=== PATIENT | female | born 1980 | race Caucasian/White ===

== ENCOUNTER 2016-08-29 10:58 | Emergency (ER) | payer OTHER ==
[~2016-08-29] VITALS: Ht 152.4 cm; Wt 79.5 kg
[2016-08-29] MEDS ORDERED: methylPREDNISolone SOD SUCC 125 MG/2 ML ONE (11:13)
[2016-08-29] MEDS ORDERED: EPINEPHRINE 1 MG/ML, 1ML ONE (11:13)
[2016-08-29] MEDS ORDERED: DIPHENHYDRAMINE 50 MG/ML, 1ML ONE (11:20)
[2016-08-29] MEDS ORDERED: LORazepam 2 MG/ML, 1ML ONE (11:20)
[2016-08-29] MEDS ORDERED: FAMOTIDINE 20 MG/2 ML ONE (11:20)
[2016-08-29] MEDS ORDERED: ALBUTEROL SULFATE 2.5 MG/3 ML ONE (11:25)
[2016-08-29] MEDS ORDERED: LISI-167 PO (11:27)
[2016-08-29] MEDS ORDERED: TRAM50TA2 PO (11:27)
[2016-08-29] MEDS ORDERED: EPINEPHRINE 1 MG/ML, 1ML IM ONE (11:30)
[2016-08-29] MEDS ORDERED: DIPHENHYDRAMINE 50 MG/ML, 1ML IVPush ONE (11:30)
[2016-08-29] MEDS ORDERED: ALBUTEROL SULFATE 2.5 MG/3 ML NPPB ONE (11:30)
[2016-08-29] MEDS ORDERED: SODIUM CHLORIDE FLUSH 10ML SYR IVF ONE (11:30)
[2016-08-29] MEDS ORDERED: FAMOTIDINE 20 MG/2 ML IVPush ONE (11:30)
[2016-08-29] MEDS ORDERED: LORazepam 2 MG/ML, 1ML IVPush ONE (11:30)
[2016-08-29] MEDS ORDERED: ONDANSETRON 2MG/ML, 2ML IVPush ONE (11:30)
[2016-08-29] MEDS ORDERED: methylPREDNISolone SOD SUCC 125 MG/2 ML IVPush ONE (11:30)
[2016-08-29] MEDS ORDERED: SODIUM CHLORIDE 0.9% 1,000ML IVBOLUS ONE (11:30)
[2016-08-29] MEDS ORDERED: ONDANSETRON 2MG/ML, 2ML ONE (11:39)
[2016-08-29] MEDS ORDERED: PLEASE ENTER WEIGHT MC SCH (12:00)
[2016-08-29 12:32] VITALS: BP 116/75
== END 2016-08-29 14:11 | disposition home or self-care (01) ==
LOC: ED 11:43
DX: T78.40XA Allergy, unspecified, initial encounter (principal); T78.3XXA Angioneurotic edema, initial encounter; J98.01 Acute bronchospasm; R10.9 Unspecified abdominal pain
CPT/HCPCS: 94640; 96372; 96374; 96375; 99284; J0171; J1200; J2060; J2405; J2930; J7030; J7613; S0028

== ENCOUNTER 2020-07-02 15:50 | Emergency (ER) | payer MEDICAID, OTHER ==
[~2020-07-02] VITALS: Ht 182.9 cm; Wt 96.3 kg
[~2020-07-02 15:50] MED LIST: LISI-167 PO; TRAM50TA2 PO
[2020-07-02 16:44] LABS: BASOPHILS % (AUTO) 1 % (0-1); EOSINOPHILS % (AUTO) 9 % (1-7); LYMPHOCYTES % (AUTO) 35 % (22-44); MEAN CORPUSCULAR HEMOGLOBIN 33.6 pg (27.0-34.8); MEAN CORPUSCULAR HGB CONC 33.6 g/dL (32.4-35.8); MEAN PLATELET VOLUME 7.9 fL (7.4-10.4); MONOCYTES % (AUTO) 12 % (2-9); NEUTROPHILS % (AUTO) 44 % (42-75); PLATELET COUNT 172 x10^3/uL (130-400); RED BLOOD COUNT 4.25 x10^6/uL (3.82-5.3)
[2020-07-02 16:47] LABS: MD NO
--- NOTE | 2020-07-02 16:50 | NUR ---
cc of SI thoughts with no plan and hearing and seeing things that are not there. 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 pt states she does not have hx of hearing voices and seeing things that aren't there. pt states the voices are not telling her to hurt herself or others. pt has hx of cutting wrists in january 2020. pt arrived to hospital with sister, sister to take pts jewlery, medications, and backpack home. pt has clothing in locker, pt in gown, sitter at doorway and SI precautions in place.
[2020-07-02 16:54] LABS: ALBUMIN 4.3 g/dL (3.4-5.0); ANION GAP 4 mmol/L (5-15); CALCIUM 9.1 mg/dL (8.5-10.1); CHLORIDE 106 mmol/L (98-107); CREATININE 0.71 mg/dL (0.55-1.02)
[2020-07-02] MEDS ORDERED: LORazepam 1MG TABLET PO ONE (17:00)
--- NOTE | 2020-07-02 17:01 | NUR ---
nick haq collected and walked to lab
[2020-07-02] MEDS ORDERED: ARIPIPRAZOLE 5 MG TABLET ONE (17:09)
[2020-07-02] MEDS ORDERED: LORazepam 1MG TABLET ONE (17:09)
[2020-07-02 17:14] LABS: AMPHETAMINE SCREEN, URINE Negative (Negative); BARBITURATE SCREEN, URINE Negative (Negative); BENZODIAZEPINE SCREEN, URINE Negative (Negative); CANNABINOID SCREEN, URINE Positive (Negative); COCAINE SCREEN, URINE Negative (Negative); METHADONE SCREEN, URINE Negative (Negative); OPIATE SCREEN, URINE Negative (Negative)
--- NOTE | 2020-07-02 18:25 | NUR ---
PT UP TO RESTROOM WITH STEADY INDEPENDENT GAIT. SI PRECAUTIONS IN PLACE AND SITTER AT DOORWAY.
--- NOTE | 2020-07-02 18:44 | NUR ---
ATTEMPT #1 FOR REPORT, [facility] REQUESTED RN TO CALL BACK AFTER SHIFT CHANGE
--- NOTE | 2020-07-02 18:45 | NUR ---
REPORT GIVEN TO JEFFRY ALVARADO.
[2020-07-02 19:08] VITALS: BP 94/58
--- NOTE | 2020-07-02 19:10 | NUR ---
report given to cristino huerta
[2020-07-03] MEDS ORDERED: FENO48TA10 PO (01:20)
[2020-07-03] MEDS ORDERED: LAMO25TA9 PO (01:36)
[2020-07-03] MEDS ORDERED: LEVE500T8 PO (01:36)
[2020-07-03] MEDS ORDERED: HYDR50CA2 PO (01:36)
[2020-07-03] MEDS ORDERED: ARIPIPRAZOLE 10 MG TABLET PO SCH (09:00)
[2020-07-03] MEDS ORDERED: ARIPIPRAZOLE 5 MG TABLET PO SCH (09:00)
== END 2020-07-02 19:25 ==
LOC: ED 19:18
DX: F32.9 Major depressive disorder, single episode, unspecified (principal); Z20.822 Contact with and (suspected) exposure to COVID-19; R44.0 Auditory hallucinations; R45.851 Suicidal ideations; I10 Essential (primary) hypertension; J45.909 Unspecified asthma, uncomplicated; F17.200 Nicotine dependence, unspecified, uncomplicated; Z90.710 Acquired absence of both cervix and uterus
CPT/HCPCS: 36415; 80048; 80307; 82040; 84443; 85025; 87426; 99285

== ENCOUNTER 2020-07-02 17:35 | Inpatient (IN) | payer MEDICAID, OTHER ==
[~2020-07-02] VITALS: Ht 182.9 cm; Wt 99.6 kg
[2020-07-02] MEDS ORDERED: POLYETHYLENE GLYCOL 17 GM PACKET PO PRN (18:00)
[2020-07-02] MEDS ORDERED: DOCUSATE 100 MG CAPSULE PO PRN (18:00)
[2020-07-02] MEDS ORDERED: ONDANSETRON ODT 4 MG PO PRN (18:00)
[2020-07-02] MEDS ORDERED: BISACODYL 10 MG SUPP PR PRN (18:00)
[2020-07-02 19:50] VITALS: BP 112/83
[2020-07-02] MEDS ORDERED: PLEASE ENTER HEIGHT AND WEIGHT MC SCH (20:00)
[2020-07-02] MEDS ORDERED: LAMOTRIGINE 25 MG TABLET PO SCH (21:00)
[2020-07-02 21:26] VITALS: BP 112/83
[2020-07-02] MEDS: LEVETIRACETAM 500 MG TABLET PO SCH (22:09)
[2020-07-02] MEDS: ACETAMINOPHEN 325 MG TABLET PO PRN (22:09)
[2020-07-03 01:11] LABS: MICROSCOPIC NOT IND
[2020-07-03] MEDS ORDERED: FENO48TA10 PO (01:20)
[2020-07-03] MEDS ORDERED: LEVE500T8 PO (01:36)
[2020-07-03] MEDS ORDERED: HYDR50CA2 PO (01:36)
[2020-07-03] MEDS ORDERED: LAMO25TA9 PO (01:36)
[2020-07-03 07:00] VITALS: BP 113/81
[2020-07-03 07:02] LABS: FREE T4 (FREE THYROXINE) 0.94 ng/dL (0.76-1.46); LDL/HDL RATIO 1.5 (0.5-3.0)
[2020-07-03] MEDS: ACETAMINOPHEN 325 MG TABLET PO PRN ×3 (07:55→18:09)
[2020-07-03] MEDS: LAMOTRIGINE 25 MG TABLET PO SCH ×2 (08:01→21:07)
[2020-07-03] MEDS: LEVETIRACETAM 500 MG TABLET PO SCH ×2 (08:01→21:07)
[2020-07-03] MEDS: NICOTINE 14MG/24 HR PATCH.TD24 TD SCH (08:03)
[2020-07-03] MEDS: DULOXETINE 30 MG CAPSULE.DR PO SCH (16:30)
[2020-07-03 18:05] VITALS: BP 110/76
[2020-07-03] MEDS: QUETIAPINE 25MG TABLET PO SCH (21:07)
[2020-07-04] MEDS: ACETAMINOPHEN 325 MG TABLET PO PRN ×2 (04:36→20:58)
[2020-07-04 07:00] VITALS: BP 115/81
[2020-07-04] MEDS: LEVETIRACETAM 500 MG TABLET PO SCH ×2 (08:21→20:53)
[2020-07-04] MEDS: DULOXETINE 30 MG CAPSULE.DR PO SCH (08:21)
[2020-07-04] MEDS: LAMOTRIGINE 25 MG TABLET PO SCH ×2 (08:22→20:54)
[2020-07-04] MEDS: NICOTINE 14MG/24 HR PATCH.TD24 TD SCH (08:52)
[2020-07-04] MEDS ORDERED: MELOXICAM 15 MG TABLET PO SCH (09:00)
[2020-07-04 19:44] VITALS: BP 116/75
[2020-07-04] MEDS: QUETIAPINE 25MG TABLET PO SCH (20:53)
[2020-07-05 07:48] VITALS: BP 121/83
[2020-07-05] MEDS: LEVETIRACETAM 500 MG TABLET PO SCH ×2 (08:12→20:53)
[2020-07-05] MEDS: DULOXETINE 30 MG CAPSULE.DR PO SCH (08:12)
[2020-07-05] MEDS: LAMOTRIGINE 25 MG TABLET PO SCH ×2 (08:13→20:54)
[2020-07-05] MEDS: NICOTINE 14MG/24 HR PATCH.TD24 TD SCH (09:00)
[2020-07-05] MEDS: ACETAMINOPHEN 325 MG TABLET PO PRN ×2 (09:26→15:12)
[2020-07-05 19:25] VITALS: BP 114/78
[2020-07-05] MEDS: QUETIAPINE 25MG TABLET PO SCH (20:54)
[2020-07-05] MEDS: MELOXICAM 15 MG TABLET PO SCH (20:54)
[2020-07-06] MEDS: ACETAMINOPHEN 325 MG TABLET PO PRN ×4 (04:19→20:05)
[2020-07-06 07:48] VITALS: BP 115/81
[2020-07-06] MEDS: LEVETIRACETAM 500 MG TABLET PO SCH ×2 (08:07→20:05)
[2020-07-06] MEDS: LAMOTRIGINE 25 MG TABLET PO SCH ×2 (08:07→20:05)
[2020-07-06] MEDS: NICOTINE 14MG/24 HR PATCH.TD24 TD SCH (08:08)
[2020-07-06] MEDS: DULOXETINE 30 MG CAPSULE.DR PO SCH (08:08)
[2020-07-06] MEDS ORDERED: MELO15TA24 PO (13:53)
[2020-07-06] MEDS ORDERED: QUET25TA7 PO (13:53)
[2020-07-06] MEDS ORDERED: DULO30CA2 PO (13:53)
[2020-07-06] MEDS ORDERED: NICO-486 TD (13:53)
[2020-07-06 18:11] VITALS: BP 104/71
[2020-07-06] MEDS: QUETIAPINE 25MG TABLET PO SCH (20:05)
[2020-07-06] MEDS: MELOXICAM 15 MG TABLET PO SCH (20:05)
[2020-07-07] MEDS: ACETAMINOPHEN 325 MG TABLET PO PRN ×2 (00:55→09:23)
[2020-07-07 07:53] VITALS: BP 121/86
[2020-07-07] MEDS ORDERED: LAMOTRIGINE 25 MG TABLET PO SCH (09:00)
[2020-07-07] MEDS: DULOXETINE 30 MG CAPSULE.DR PO SCH (09:14)
[2020-07-07] MEDS: NICOTINE 14MG/24 HR PATCH.TD24 TD SCH (09:15)
[2020-07-07] MEDS: LEVETIRACETAM 500 MG TABLET PO SCH (09:15)
[2020-07-09] MEDS ORDERED: LAMOTRIGINE 25 MG TABLET PO SCH (09:00)
== END 2020-07-07 09:45 | disposition home or self-care (01) | DRG 885 ==
LOC: 3E 19:19
PROVIDERS: ADMIT Psychiatry & Neurology Psychosomatic Medicine; ATTEND Psychiatry & Neurology Psychosomatic Medicine
DX: F33.3 Major depressive disorder, recurrent, severe with psychotic symptoms (principal); E78.1 Pure hyperglyceridemia; F10.21 Alcohol dependence, in remission; G40.909 Epilepsy, unspecified, not intractable, without status epilepticus; G89.29 Other chronic pain; G43.909 Migraine, unspecified, not intractable, without status migrainosus; I10 Essential (primary) hypertension; Z88.8 Allergy status to other drugs, medicaments and biological substances; Z91.018 Allergy to other foods; Z90.710 Acquired absence of both cervix and uterus; Z90.89 Acquired absence of other organs; F17.211 Nicotine dependence, cigarettes, in remission; F12.10 Cannabis abuse, uncomplicated; Z82.0 Family history of epilepsy and other diseases of the nervous system; F41.1 Generalized anxiety disorder
CPT/HCPCS: 36415; 71045; 80061; 81003; 84439; 84443; 93005